=== PATIENT | male | born 1930 | race Caucasian/White ===

== ENCOUNTER 2017-05-07 14:09 | Inpatient (IN) | payer OTHER ==
--- NOTE | 2017-05-07 14:35 | EDPHY ---
H & P Stated Complaint: pnuemonia on xray this morning Time Seen by Provider: 05/07/17 14:32 HPI/ROS: CHIEF COMPLAINT: Weakness, cough HISTORY OF PRESENT ILLNESS: The patient is referred to the emergency department for evaluation of weakness, cough and hypoxemia. The patient reports he developed a cough approximately 5 days ago. The patient was seen at [facility] imaging center earlier today had a chest x-ray which demonstrated bilateral pneumonia. The patient denies any recent travel outside the [place] or antibiotic use. The patient does have a history of hypertension. He is also on Lasix. The patient denies significant weight gain. The patient denies any complaints of headache, neck pain, numbness or weakness. REVIEW OF SYSTEMS: A comprehensive 10 point review of systems is otherwise negative aside from elements mentioned in the history of present illness. Source: Patient Exam Limitations: No limitations - Personal History Current Tetanus/Diphtheria Vaccine: No Current Tetanus Diphtheria and Acellular Pertussis (TDAP): No - Medical/Surgical History Hx Asthma: No Hx Chronic Respiratory Disease: No Hx Diabetes: No Hx Cardiac Disease: Yes Hx Renal Disease: No Hx Cirrhosis: No Hx Alcoholism: No Hx HIV/AIDS: No Hx Splenectomy or Spleen Trauma: No Other PMH: CABG, colon CA, gout, cataract sx, CHF - Social History Smoking Status: Never smoked - Physical Exam Exam: General Appearance: Thin cachectic male Eyes: Pupils equal and round no pallor or injection ENT, Mouth: Mucous membranes moist Respiratory: Rhonchi bilateral lung bases Cardiovascular: Regular rate and rhythm, 2/6 systolic ejection murmur Gastrointestinal: Abdomen is soft and nontender, no masses, bowel sounds normal Neurological: 5/5 strength all 4 extremities, cranial nerves grossly intact Skin: Warm and dry, no rashes Musculoskeletal: Neck is supple nontender Extremities: symmetrical, full range of motion Constitutional: Initial Vital Signs Temperature (C) 36.8 C 05/07/17 14:16 Heart Rate 92 05/07/17 14:16 Respiratory Rate 20 05/07/17 14:16 Blood Pressure 101/49 L 05/07/17 14:16 O2 Sat (%) 93 05/07/17 14:16 O2 Delivery Mode Room Air O2 (L/minute) 2 Allergies/Adverse Reactions: bee stings Allergy (Uncoded 05/07/17 14:15) Home Medications: Medication Instructions Recorded Allopurinol [Allopurinol 100 MG 200 mg PO DAILY 05/07/17 (*)] Aspirin EC [Aspirin EC 81 mg (*)] 81 mg PO DAILY 05/07/17 Furosemide [Lasix 20 MG (*)] 20 mg PO DAILY 05/07/17 Losartan Potassium [Cozaar 50 mg 50 mg PO DAILY 05/07/17 (*)] Nebivolol HCl [Bystolic] 10 mg PO DAILY 05/07/17 Medical Decision Making - Diagnostics EKG Interpretation: EKG: Complete interpretation has been separately recorded in the [facility] archive. Summary impression: Atrial fibrillation, rate 50, bifascicular block Imaging Results: Imaging Impressions Chest X-Ray 05/07/17 11:34 Impression: Bilateral lower lobe pneumonia. ED Course/Re-evaluation: The patient appears strain dehydrated. He has a history of heart failure presents to the ED with a bilateral lower lobe pneumonia. The patient will require admission to the hospital. Blood cultures x2 obtained. The patient is started on IV Levaquin. Differential Diagnosis: Differential diagnosis considered includes pneumonia, influenza, bronchitis, heart failure - Data Points Laboratory Results: Laboratory Results 05/07/17 14:45 05/07/17 14:45 05/07/17 05/07/17 05/07/17 14:45 14:45 14:45 WBC 6.73 10^3/uL 10^3/uL (3.80-9.50) RBC 4.74 10^6/uL 10^6/uL (4.40-6.38) Hgb 15.4 g/dL g/dL (13.7-17.5) Hct 46.1 % % (40.0-51.0) MCV 97.3 fL fL (81.5-99.8) MCH 32.5 pg pg (27.9-34.1) MCHC 33.4 g/dL g/dL (32.4-36.7) RDW 14.7 % % (11.5-15.2) Plt Count 68 10^3/uL L 10^3/uL (150-400) MPV 12.3 fL H fL (8.7-11.7) Neut % (Auto) 58.1 % % (39.3-74.2) Lymph % (Auto) 30.9 % % (15.0-45.0) [place] % (Auto) 7.6 % % (4.5-13.0) Eos % (Auto) 2.5 % % (0.6-7.6) Baso % (Auto) 0.6 % % (0.3-1.7) Nucleat RBC Rel Count 0.0 % % (0.0-0.2) Absolute Neuts (auto) 3.91 10^3/uL 10^3/uL (1.70-6.50) Absolute Lymphs (auto) 2.08 10^3/uL 10^3/uL (1.00-3.00) Absolute Monos (auto) 0.51 10^3/uL 10^3/uL (0.30-0.80) Absolute Eos (auto) 0.17 10^3/uL 10^3/uL (0.03-0.40) Absolute Basos (auto) 0.04 10^3/uL 10^3/uL (0.02-0.10) Absolute Nucleated RBC 0.00 10^3/uL 10^3/uL (0-0.01) Immature Gran % 0.3 % % (0.0-1.1) Immature Gran # 0.02 10^3/uL 10^3/uL (0.00-0.10) Sodium 140 mEq/L mEq/L (135-145) Potassium 4.3 mEq/L mEq/L (3.5-5.2) Chloride 103 mEq/L mEq/L (97-110) Carbon Dioxide 19 mEq/l L mEq/l (22-31) Anion Gap 18 mEq/L H mEq/L (8-16) BUN 53 mg/dL H mg/dL (7-23) Creatinine 1.5 mg/dL H mg/dL (0.7-1.3) Estimated GFR 44 Glucose 83 mg/dL mg/dL (70-100) Calcium 9.4 mg/dL mg/dL (8.5-10.4) NT-Pro-B Natriuret Pep 18459 pg/mL H pg/mL (0-450) Departure - Departure Disposition: [facility] Inpatient Acute Clinical Impression: Pneumonia Condition: Fair
[2017-05-07 14:58] LABS: PLATELET COUNT 68 10^3/uL (150-400)
[2017-05-07] MEDS ORDERED: levOFLOXACIN 500 MG/DEXTROSE 100 ML IV ONE (15:10)
--- NOTE | 2017-05-07 15:21 | CPEKG ---
Heart Rate: 58 RR Interval: 1034 QRSD Interval: 136 QT Interval: 532 QTC Interval: 523 QRS [place]: 77 T Wave [place]: -79 EKG Severity - ABNORMAL ECG - EKG Impression: ATRIAL FIBRILLATION EKG Impression: VENTRICULAR PREMATURE COMPLEX EKG Impression: RBBB AND LPFB EKG Impression: ANTERIOR INFARCT, OLD Electronically Signed By: Morales Parra 07-May-2017 15:56:35
[2017-05-07] MEDS ORDERED: ACETAMINOPHEN 325 MG TAB PO PRN (15:30)
[2017-05-07] MEDS ORDERED: ONDANSETRON 4 MG/2 ML VIAL IVP PRN (15:30)
[2017-05-07] MEDS ORDERED: ONDANSETRON DISINTEGRATING 4 MG TAB PO PRN (15:30)
[2017-05-07] MEDS ORDERED: NS 1,000 ML IV ONE (15:32)
--- NOTE | 2017-05-07 16:11 | GHP ---
[f rep st] HISTORY AND PHYSICAL DATE OF ADMISSION: 05/07/2017 CHIEF COMPLAINT: Shortness of breath. HISTORY OF PRESENT ILLNESS: 86-year-old man sent to the emergency department for a respiratory infection. He is accompanied by his . He has had about 5 days of symptoms including some shortness of breath with exertion, cough, some phlegm production. He has not had any fevers. He occasionally coughs when he eats. He has never had any resistant bacteria. No recent exposure to a sauna or hot tub. He has no known history of atrial fibrillation. PAST MEDICAL/SURGICAL HISTORY: 1. Coronary artery disease, status post CABG. Systolic CHF with an EF of 36%. 2. Gout. 3. Colon cancer. 4. Cataract surgery. MEDICATIONS: Please see medication reconciliation. ALLERGIES: Bee stings. SOCIAL HISTORY: He is accompanied by his . He drinks 1 glass of wine with dinner. Does not smoke. FAMILY HISTORY: Reviewed and noncontributory. REVIEW OF SYSTEMS: 10-point review of systems is conducted and is negative except per HPI. PHYSICAL EXAM: VITAL SIGNS: Blood pressure 101/49, heart rate 92, respiration rate 20, saturating 93% on room air, temperature 36.8. GENERAL: The patient is a pleasant man who is resting comfortably. No acute distress. HEENT: Shows him to be normocephalic, atraumatic. He has a macular rash on his neck. CARDIOVASCULAR: Shows him to be irregularly irregular. He has distant S1 and S2. There are no murmurs, rubs, or gallops. PULMONARY: Bilateral basilar crackles. ABDOMEN: Soft, nontender, nondistended. SKIN: Rash on the neck. : No Johns. NEUROLOGIC: Shows him to be alert and oriented x3. He is moving all extremities. PSYCHIATRIC: Normal mood and affect. LABORATORY DATA: Creatinine is 1.5, BUN is 53, bicarb is 19. Platelets are 68. DATA: 1. Discussed with Dr. Parra in the emergency department. Will admit to PCU. 2. I personally viewed and interpreted his chest x-ray. This shows bilateral lower lobe infiltrates. 3. I personally viewed and interpreted his EKG. This shows atrial fibrillation. 4. I reviewed his chart including notes from Dr. Plummer as well as Dr. Parra ' ER note. IMPRESSION AND PLAN: 1. Pneumonia: Possibly aspiration. No history of resistant organisms. Will treat for community-acquired pneumonia with Rocephin and doxycycline (he has a prolonged QT). Send a respiratory pathogen panel. He has a reactive airways component. Will add prednisone. 2. Reactive airways disease: Prednisone. 3. Atrial fibrillation: This is new. His EKG is somewhat difficult to interpret. May be due to acute pneumonia. I will trend troponins, place him in the PCU, monitor him on telemetry, and recheck an EKG in the morning. 4. Ischemic congestive heart failure: He is in systolic congestive heart failure with an ejection fraction of 36%. He is followed by Dr. Plummer. I think that he is clinically dry. I will give him a 1 L bolus. Follow this closely. He will need his congestive heart failure medications restarted when appropriate. 5. Bradycardia: Will hold his Bystolic for now. He has some mild pauses seen on telemetry. This will likely need to be restarted soon. 6. Acute kidney injury: I believe this is prerenal. Will hold nephrotoxins including angiotensin receptor ariana, give him a fluid bolus, recheck tomorrow. 7. Gout: Allopurinol. Would need to reduce the allopurinol if his creatinine does not improve. 8. Coronary artery disease: Continue his aspirin. I do not see a statin on his list. Holding other cardiac medications for now as above. 9. Code status: Discussed with him and his . He would like to be full code. 10. Thrombocytopenia: This is new. Unsure the true chronicity, though his last platelets were checked in 2014 and were 117. Will recheck tomorrow. Hold venous thromboembolism prophylaxis. 11. Venous thromboembolism prophylaxis: Sequential compression devices. /[id number]/MODL MTDD
[2017-05-07] MEDS: predniSONE 20 MG TAB PO SCH (16:25)
[2017-05-07] MEDS: DOXYCYCLINE INJ 100 MG in NS 250 ML IV SCH (20:35)
[2017-05-08 05:28] LABS: PLATELET COUNT 62 10^3/uL (150-400)
[2017-05-08] MEDS: ALLOPURINOL 100 MG TAB PO SCH (08:12)
[2017-05-08] MEDS: predniSONE 20 MG TAB PO SCH (08:12)
[2017-05-08] MEDS: ASPIRIN EC 81 MG TAB PO SCH (08:12)
--- NOTE | 2017-05-08 08:44 | CPEKG ---
Heart Rate: 59 RR Interval: 1017 QRSD Interval: 128 QT Interval: 504 QTC Interval: 500 QRS [place]: 163 T Wave [place]: -61 EKG Severity - ABNORMAL ECG - EKG Impression: ATRIAL FIBRILLATION EKG Impression: NONSPECIFIC INTRAVENTRICULAR CONDUCTION DELAY EKG Impression: LOW VOLTAGE QRS IN FRONTAL LEADS EKG Impression: EXTENSIVE ANTERIOR INFARCT, AGE INDETERMINATE Electronically Signed By: New Romero 08-May-2017 11:00:15
[2017-05-08] MEDS ORDERED: cefTRIAXone 1 GM in STERILE WATER INJ 10 ML IV SCH (09:00)
[2017-05-08] MEDS ORDERED: ENOXAPARIN 40 MG/0.4 ML SYR SC SCH (09:00)
--- NOTE | 2017-05-08 09:09 | PDMN ---
Medical Necessity Medical necessity: M282 cPNA- A-4 days: pna poss aspiration,SOB, cough, bilat infiltrates on CXR, EKG shows afib, ischemic congestive heart failure: sCHF with EF 36% hx of CABG, bradycardia, acute kidney injury, anticipate > 2 midnights ongoing monitoring, eval and tx needed.
[2017-05-08] MEDS: DOXYCYCLINE INJ 100 MG in NS 250 ML IV SCH ×2 (09:15→20:50)
--- NOTE | 2017-05-08 12:17 | ASMTCMCOM ---
CM Note CM Note Notes: 05/08/2017 Case Management Note Discussed pt during rounds this morning. Met w/pt and Cassandra [phone] (h) [phone] (cell) to discuss PT recommendation for home care. and pt in agreement. Confirmed address and home bound status. Primary MD is Dr. Williams Peters in [facility]. Faxed referral to [facility] at family request after discussing agency options. Case Management d/c poc: [facility] RN and PT Case Management to follow. Date Signed: 05/08/2017 12:16 PM Electronically Signed By:Nica Eli RN
--- NOTE | 2017-05-08 16:42 | HOSPPROG ---
Hospitalist Progress Note Assessment/Plan: # acute hypoxic respiratory failure- chest x-ray(personally reviewed and interpreted) shows bilateral infiltrates Oxygen saturations 93% on 3 L - continue empiric IV antibiotics for community-acquired pneumonia - continue inhaled beta agonist - continue supplemental oxygen # acute kidney injury secondary to hypovolemia-creatinine 1.5->1.3 status post IV fluid resuscitation - continue to follow # coronary artery disease-no active chest pain complaints -continue aspirin - continue telemetry monitoring # hypotension-presumed secondary to acute infection and concurrent hypovolemia -continue IV fluid support -hold home antihypertensive # -prophylaxis Lovenox # diet as tolerated # disposition greater than 2 midnights as the patient is 86 presenting with acute pneumonia requiring IV antibiotics and therapy eval for safe disposition I have discussed the case with the RN-we will continue current course Subjective: Very tired Objective: Vital Signs Temp Pulse Resp BP Pulse Ox 36.4 C 57 L 16 85/58 L 97 05/08/17 07:46 05/08/17 12:44 05/08/17 11:13 05/08/17 12:44 05/08/17 11:13 Microbiology 05/07/17 23:18 Respiratory Panel (PCR) - Final Nasal, Sinus - [place] Viral Transport No Organism Detected Laboratory Results 05/08/17 05:17 05/08/17 05:17 05/07/17 05/08/17 05/09/17 05:59 05:59 05:59 Intake Total 1410 Balance 1410 - Physical Exam Constitutional: chronically ill appearing Eyes: anicteric sclera Ears, Nose, Mouth, Throat: moist mucous membranes Cardiovascular: regular rate and rhythym Respiratory: no respiratory distress, rhonchi Gastrointestinal: normoactive bowel sounds Genitourinary: no bladder fullness Skin: warm Musculoskeletal: No asymmetric calves Neurologic: No AAOx3 Psychiatric: poor memory Lymph, Heme, Immunologic: no cervical LAD ICD10 Worksheet Patient Problems: Problems Problem Status Onset Pneumonia Acute
[2017-05-08] MEDS ORDERED: NS 1,000 ML IV ONE (16:44)
[2017-05-09] MEDS: ALLOPURINOL 100 MG TAB PO SCH (08:53)
[2017-05-09] MEDS: predniSONE 20 MG TAB PO SCH (08:54)
[2017-05-09] MEDS: DOXYCYCLINE INJ 100 MG in NS 250 ML IV SCH ×2 (08:55→20:21)
[2017-05-09] MEDS: ASPIRIN EC 81 MG TAB PO SCH ×2 (08:56→16:10)
[2017-05-09] MEDS ORDERED: NS 1,000 ML IV ONE (10:42)
--- NOTE | 2017-05-09 15:21 | HOSPPROG ---
Hospitalist Progress Note Assessment/Plan: # acute hypoxic respiratory failure- chest x-ray (personally reviewed and interpreted) shows bilateral infiltrates Oxygen saturations 90% on RA at rest - continue empiric IV antibiotics for community-acquired pneumonia - continue inhaled beta agonist - continue supplemental oxygen # acute kidney injury secondary to hypovolemia-creatinine 1.5->1.2 status post IV fluid resuscitation - continue to follow # atrial fibrillation with new junctional rhythm-patient is presenting AFib appears to be new per history as well as the junctional rhythm this afternoon - consult Cardiology -continue to hold home meds - ordering TTE # acute hyperkalemia-suspect likely related to hemolysis will recheck lab # coronary artery disease-no active chest pain complaints- troponin indeterminate of 0.10 range at presentation EKG ( personally reviewed and interpreted) with nonspecific ST-T flattening- atrial fibrillation is new - continue aspirin - continue telemetry monitoring - ordering transthoracic echocardiogram # chronic ischemic cardiomyopathy-last ejection fraction reported in the 30% range currently appears compensated- if anything volume down at presentation - status post IV fluid resuscitation - continue to follow # hypotension-presumed secondary to acute infection and concurrent hypovolemia Status post 2 L normal saline fluid resuscitation -continue to hold home antihypertensive # prophylaxis Lovenox # diet as tolerated # disposition greater than 2 midnights as the patient is 86 presenting with acute pneumonia requiring IV antibiotics and therapy eval for safe disposition I have discussed the case with Cardiology-they will consult and review patient' s rhythm strips as well as transthoracic echocardiogram Subjective: Wants to go home Objective: Vital Signs Temp Pulse Resp BP Pulse Ox 36.6 C 66 21 H 89/53 L 88 L 05/09/17 07:24 05/09/17 14:33 05/09/17 14:33 05/09/17 12:36 05/09/17 14:33 Laboratory Results 05/09/17 03:48 05/09/17 13:25 05/08/17 05/09/17 05/10/17 05:59 05:59 05:59 Intake Total 1410 2100 740 Output Total 240 Balance 1410 2100 500 - Physical Exam Constitutional: chronically ill appearing Eyes: anicteric sclera Ears, Nose, Mouth, Throat: dry mucous membranes Cardiovascular: regular rate and rhythym, systolic murmur, bradycardia Respiratory: no respiratory distress, rhonchi Gastrointestinal: normoactive bowel sounds Genitourinary: no bladder fullness Skin: warm Musculoskeletal: No asymmetric calves Neurologic: No AAOx3 Psychiatric: poor memory Lymph, Heme, Immunologic: no cervical LAD ICD10 Worksheet Patient Problems: Problems Problem Status Onset Pneumonia Acute
--- NOTE | 2017-05-09 16:22 | ECHO ---
[email or web address] [address] Main: [phone] Fax: [email or web address] Echocardiogram Name: WEN DODGE MR#: [id number] Study Date: 05/09/2017 Study Time: 01:52 PM Date of : 1930 Age: 86 year(s) Height: ( ) Weight: ( ) BSA: Gender: Male Examination: Echo Indication: hypotension h/o HF Image Quality: Contrast: Requested by: Angely Hanks BP: 83 mmHg/63 mmHg Heart Rate: Rhythm: Indication: hypotension h/o HF Procedure Staff Grain Farmworker: Rosamaria Dye [facility] Reading Physician: Tam Colindres MD Requesting Provider: Conclusions: The patient is in atrial fibrillation at the time of the study. The left ventricle appears to be normal in size. The ejection fraction is moderately reduced at 34%. Segmental wall motion abnormalities include akinesis of the inferior and inferolateral lewis. The interventricular septum is "D" shaped in systole and I asked Abelardo consistent with right ventricular pressure and volume overload. There is moderate biatrial enlargement. The right ventricle appears to be mildly dilated with mild to moderately reduced RV systolic function. Mild mitral annular calcification is noted. There is moderate mitral and tricuspid regurgitation. The estimated RVSP is moderately elevated at 52 mmHg. IVC plethora as noted. There are no comparison studies. There is mention made in the electronic medical record that the patient has had a known ischemic cardiomyopathy with previous ejection fraction of 36%. Measurements: Chambers Valvular Assessment AV/MV Valvular Assessment TV/PV Normal Normal Normal Name Value Range Name Value Range Name Value Range Ao Della (MM): 3.8 cm (2.2 cm-3.7 AV Vmax: 0.85 m/s (1 m/s-1.7 TR Vmax: 3.05 mm/s ( - ) cm) m/s) TR PGmax: 37 mmHg ( - ) IVSd (2D): 1.2 cm (0.6 cm-1.1 AV maxP mmHg ( - ) syst. PAP: 52 mmHg ( - ) cm) LVOT Vmax: 0.73 m/s (0.7 m/s-1.1 PV Vmax: 0.37 m/s (0.6 m/s-0.9 LVDd (2D): 5.7 cm (4.2 cm-5.9 m/s) m/s) cm) MV E Vmax: 0.74 m/s ( - ) PV PGmax: 1 mmHg ( - ) LVDs (2D): 4.3 cm (2.1 cm-4 MV A Vmax: 0.27 m/s ( - ) cm) MV E/A: 2.74 ( - ) LVPWd (2D): 1.0 cm (0.6 cm-1 cm) LVEF (BP): 34 % (>=55 %) RVDd(2D): 4.0 cm (1.9 cm-3.8 cmmm) Continued Measurements: Patient: WEN DODGE Study Date: 05/09/2017 Page 1 of 2 01:52 PM Chambers Valvular Assessment AV/MV Valvular Assessment TV/PV Name Value Name Value Name Value LADs: 4.4 cm MV DecTime: 85 m/s CVP (est.): 15 mmHg LADs Lon.0 cm MV E/E' Lateral: 10.30 LA Area: 23.3 cm2 LA Volume: 81 ml TAPSE: 0.7 cm RA Area: 29.0 cm2 Additional Vessels Name Value Ao Ascendin.0 cm Findings: Left Ventricle: Left ventricle upper limits of normal. Mild concentric LV hypertrophy. Moderately reduced systolic LV function. EF is 34 %. Unable to assess diastolic dysfunction. Basal to mid inferior, inferoseptal and inferolateral thinning and akinesis consistent with old PR. Remaining lewis are mildly hypokinetic. Right Ventricle: Mildly to moderately dilated right ventricle. Mildly to moderately reduced right ventricular function. Flattened interventricular septum consistent with right ventricular pressure and/or volume overload free wall. Left Atrium: The left atrium is moderately dilated. Right Atrium: The right atrium is moderately to severely dilated. Mitral Valve: There is mild thickening of the mitral valve leaflets. Mild mitral annular calcification. Moderate mitral valve regurgitation is present. No mitral stenosis is present. Aortic Valve: The aortic valve is tri-leaflet and functions normally. Trivial aortic valve regurgitation. No aortic valve stenosis is present. Tricuspid Valve: The tricuspid valve is normal in appearance and function. Moderate tricuspid regurgitation is present. Right ventricular systolic pressure measures 52mmHg. The pulmonary artery pressure is moderately increased. Pulmonic Valve: Pulmonary valve not well visualized. Trivial pulmonic valve regurgitation. Aorta: Normal size aortic root measuring 3.8 cm. Normal size ascending aorta measuring 3.0 cm. IVC: The IVC is dilated. There is less than 50% respiratory excursion. Pericardium: Trivial pericardial effusion. There is a pleural effusion present. (No Signature Object) Patient: WEN DODGE Study Date: 05/09/2017 Page 2 of 2 01:52 PM [id number]
--- NOTE | 2017-05-09 17:12 | GCON ---
[f rep st] CONSULTATION CARDIOLOGY CONSULTATION DATE OF CONSULTATION: 05/09/2017 REFERRING PHYSICIAN: Angely Hanks MD PRIMARY HOME LIGHTING ADVISER: Dr. Carlos Plummer. REASON FOR CONSULTATION: Atrial fibrillation with slow ventricular responses. HISTORY: The patient is an 86-year-old male typically followed by Dr. Plummer in our clinic. His outpatient records have been thoroughly reviewed. He has a history of coronary artery disease status post CABG in 2000, with an ischemic cardiomyopathy, EF last measured around 30%, who presented with respiratory illness. He had noted a cough and shortness of breath approximately 5 days before presentation. He was found to have bilateral infiltrates on his chest x- ray, suggestive of a community-acquired pneumonia. He is now admitted for further treatment due to ongoing hypoxia. He was also found to be in atrial fibrillation of unknown duration. Prior to getting ill, he had not been noting any chest pain, dyspnea, PND, orthopnea, palpitations, presyncope, syncope. His activities are limited to his ADLs. He has not noted any worsening edema. PAST MEDICAL HISTORY: 1. CAD status post CABG. 2. Ischemic cardiomyopathy with systolic CHF, EF of 30%. 3. Gout. 4. History of colon cancer. 5. History of prostate cancer. 6. History of cataract surgery. 7. History of colon resection. 8. History of hernia repair. 9. History of prostatectomy. OUTPATIENT MEDICATIONS: Include allopurinol, aspirin, Bystolic, furosemide, losartan. FAMILY HISTORY: Significant for lung cancer. SOCIAL HISTORY: Patient is and lives with his spouse. He reports occasional alcohol intake. He is a nonsmoker. ALLERGIES: Bee stings. REVIEW OF SYSTEMS: As per HPI. A complete 10-point review of systems is obtained and is negative except for what is dictated. PHYSICAL EXAMINATION: VITAL SIGNS: BP of 89/53, heart rate of 50, respirations of 20, O2 saturation 98% on 2 L/min. GENERAL: He is a pleasant elderly male, in no apparent distress. EYES: Without scleral icterus. HEART: Distant heart sounds with irregular rate and rhythm. LUNGS: Very diminished with rhonchi and rales auscultated. ABDOMEN: Soft, nontender, with normoactive bowel sounds. SKIN : Venous static changes but without overt edema detected. : No Johns. Psych: Normal mood and affect for given situation. NEURO: No focal deficits detected. LABORATORY DATA: CBC with WBC 4.67, hemoglobin 14, hematocrit 42, platelet count of 66. BMP with sodium 140, potassium 4.8 chloride 108, CO2 of 19, BUN 50 , creatinine 1.2, glucose of 113. Troponin 0.142, then 0.129. NT proBNP is at 19 ,500. Telemetry personally reviewed, shows atrial fibrillation with a slow ventricular response. A 12-lead ECG, personally interpreted, shows AFib with extensive Q-waves across the precordium. IMAGING: Chest x-ray reviewed shows bilateral lower lobe pneumonias. I reviewed patient's care with Dr. Hanks. IMPRESSION AND PLAN: The patient is an 86-year-old male who presents with pneumonia. 1. Pneumonia. This is being managed by Hospital Medicine Service, and he is on antibiotics currently. He is also on supplemental oxygen for his hypoxic respiratory failure. 2. Hypoxic respiratory failure. O2 saturations are adequate at this time. 3. Atrial fibrillation. Patient is in atrial fibrillation in the setting of an infection. He has not had any noted episodes of atrial fibrillation per chart review. His CHADS-VASc is elevated with age, congestive heart failure, and vascular disease which puts his CHADS-VASc at 4, which confers a 4% per year risk of thromboembolic event. Patient should likely be on anticoagulation. However, this will be reviewed with the patient's upon her arrival. 4. Bradycardia. His beta ariana has been held. He has had pauses but none greater than 2.5 seconds which does not meet criteria for pacer, given he is asymptomatic. He will likely be placed on outpatient holter monitoring. 5. CAD. He has minimal troponin elevation in the setting of known systolic congestive heart failure. He has no symptoms suggestive of angina. He will be continued on medical management. /[id number]/MODL MTDD
[2017-05-10 07:43] VITALS: RESP 16
[2017-05-10] MEDS: DOXYCYCLINE INJ 100 MG in NS 250 ML IV SCH (07:50)
[2017-05-10] MEDS: predniSONE 20 MG TAB PO SCH (10:58)
[2017-05-10] MEDS: ALLOPURINOL 100 MG TAB PO SCH (10:59)
[2017-05-10] MEDS ORDERED: APIXABAN 5 MG TAB PO SCH (11:00)
[2017-05-10 11:28] VITALS: BP 103/58; TEMP 97.9
[2017-05-10] MEDS: ASPIRIN EC 81 MG TAB PO SCH (11:40)
--- NOTE | 2017-05-10 12:32 | PDCARPN ---
Cardiology Progress Note Chief Complaint: AF Assessment/Plan: Assessment: 86M PMH CAD/CABG 1999, AR 1999, htn, dyslipidemia, p/w cough/fatigue. Found to have bilateral pna. #. bilateral pna: per IM #. AHRF: will likely need O2 on discharge #. SCHF: echo showing stable EF 34% with AK of inf and inf/lat lewis; D shaped IVS c/w RVP and volume O/L, mod MR/TR and RVSP 52 Lasix on hold as patient has no peripheral edema will follow closely in outpatient setting to determine when to resume Lasix #. AF: new problem unknown chronicity [id number] of 4 / reviewed with patient and and they are agreeable to start Eliquis R/B/A of AC versus no AC reviewed #. bradycardia: asymptomatic plan for holter monitor in outpatient setting #. CAD: no symptoms suggestive of angina not on statin for unclear reasons will plan outpatient follow up Plan: Start on Eliquis Outpatient plans to include getting a 48-hr holter. 05/10/17 12:26 Subjective: No dyspnea currently. Reviewed/Discussed With: hospitalist (Dr. Hanks) Objective: Vital Signs (8 Hrs) Temp Pulse Resp BP Pulse Ox 05/10/17 11:19 97.9 F 50 L 16 103/58 L 98 05/10/17 07:42 97.6 F 55 L 16 101/68 96 Intake/Output (24 Hrs) 05/09/17 05/10/17 05/11/17 05:59 05:59 05:59 Intake Total 2100 1529 Output Total 440 Balance 2100 1089 Intake: Oral (ml) 800 1140 IV Intake (ml) 1300 39 IV Infused (ml) 350 Doxycycline Inj 100 mg In 250 Ns 250 ml @ 260 mls/hr IV Q12HRS OLIVE Rx#: [id number] Ns 1,000 ml @ 3000 mls/hr 100 IV ONCE ONE Rx#: [id number] Output: Urine (ml) 440 Toilet 440 Other: Weight 77.5 kg Intake Quantity Yes Sufficient Number of Voids Toilet 1 2 Number of Stools Toilet 1 1 Result Diagrams: 05/10/17 03:46 05/10/17 03:46 Cardiac Labs: Cardiac Lab Results (72 Hrs) 05/07/17 05/07/17 23:05 19:51 Troponin I 0.129 H 0.142 H Echocardiogram: reviewed - Physical Exam Constitutional: no apparent distress Eyes: anicteric sclera Cardiovascular: irregularly irregular Respiratory: reduced air movement, bronchial breath sounds Neurologic: AAOx3 Psychiatric: cooperative, interactive ICD10 Worksheet Patient Problems: Problems Problem Status Onset Pneumonia Acute
[2017-05-10 13:26] VITALS: PULSE 90
--- NOTE | 2017-05-10 13:57 | ASMTCMCOM ---
CM Note CM Note Notes: Patient reviewed in rounds. Improving and want to go home. To start Eliquis today. Per therapy ok to dc to home. Would benefit form C PT. CM to follow. Date Signed: 05/10/2017 01:54 PM Electronically Signed By:Lenka Root RN
--- NOTE | 2017-05-10 14:36 | PDIAF ---
- Diagnosis Diagnosis: pneumonia and atrila fibrillation Code Status: Full Code - Medication Management Discharge Medications: Medications to Continue on Transfer Allopurinol [Allopurinol 100 MG (*)] 200 mg PO DAILY 05/07/17 [Last Taken ] Apixaban [Eliquis] 5 mg PO BID #60 tab 05/10/17 [Last Taken Unknown] levOFLOXACIN [Levofloxacin] 750 mg PO DAILY #3 tablet 05/10/17 [Last Taken Unknown] Discharge Medications: Refer to the Discharge Home Medication list for PRN reason. - Orders Services needed: Home Care, Registered Nurse, Physical Therapy, Occupational Therapy Home Care Face to Face: I certify that this patient was under my care and that I had the required [id number] encounter meeting the encounter requirements on the discharge day. My findings support the fact that the patient is homebound as defined in Home Care Face to Face Continued: [facility] Chapter 7 Medicare Benefits Manual 30.1.1 , The condition of the patient is such that there exists a normal inability to leave home and consequently, leaving home would require a considerable and taxing effort. Isolation Type: None Diet Recommendation: no restrictions on diet Diet Texture: Regular Texture Diet - Follow Up Care Current Providers and Referrals: Robert Allred MD [Medical Doctor] - 05/22/17 1:00 pm NONE *PRIMARY CARE P,. [Unknown] - As per Instructions
--- NOTE | 2017-05-10 14:38 | PDHOMEO2F ---
Home Oxygen Face to Face Home Orders: I certify that a physician or a nurse practitioner or physician's registered nurse first assistant has had a [id number]-[id number] encounter with this patient on the date of this order due to the diagnosis listed, which relates to the primary reason the patient requires home oxygen. Alternative treatments have been tried, or considered, and deemed ineffective. It is anticipated that supplemental oxygen will result in improvement with treatment. Home oxygen qualifying diagnosis: pneumonia SpO2 on room air (%): 86% Frequency of home oxygen needed: continuous Home oxygen liters per minute: 2 Home oxygen delivery device: nasal cannula Concentrator: Yes E-tanks for mobility and back up: Yes If ordering portable O2, is the patient mobile in the home?: Yes I certify that, based on these findings, the home oxygen is medically necessary for this patient for the following length of time. Length of time home oxygen needed: 3 months
[2017-05-10 14:46] VITALS: O2SAT 87
--- NOTE | 2017-05-10 15:23 | ASMTLACE ---
LACE Length of stay for Answers: 3 days current admission Acuity / Level of Answers: Yes Care: Did the patient have an inpatient admission? Comorbidities - select Answers: Congestive heart failure all that apply Coronary Artery Disease Other Notes: HTN, Colon cancer # of Emergency department Answers: 1-2 visits in the last 6 months Score: 12 Date Signed: 05/10/2017 03:22 PM Electronically Signed By:Lenka Root RN
--- NOTE | 2017-05-10 17:22 | GDS ---
[f rep st] DISCHARGE SUMMARY DISCHARGE DIAGNOSES: Include: 1. Community-acquired pneumonia. 2. Atrial fibrillation. Started on anticoagulation. 3. Occasional junctional rhythm. 4. Coronary artery disease. 5. Ischemic cardiomyopathy, ejection fraction 36%. 6. Gout. 7. Acute hypoxic respiratory failure secondary to pneumonia. HISTORY OF PRESENT ILLNESS: An 86-year-old male who presents to the hospital with complaint of short ness of breath. For details of the patient's initial presentation, please see the History and Physic al dated 05/07/2014. CONSULTATIVE SERVICES: Include Cardiology. PROCEDURES: None. HOSPITAL COURSE: By issue: 1. Acute hypoxic respiratory failure secondary to pneumonia: Patient had infiltrates on chest x-ray . Blood cultures and respiratory viral PCR were negative. He was empirically started on IV antibiot ics. Patient had improvement in his pulmonary symptoms during his hospital stay and is being dischar ged to complete a 7-day course of antibiotics with 3 additional days of oral levofloxacin and supplem ental oxygen. He is to follow in his outpatient primary care office for evaluation of his oxygen sat 's and discontinuation of oxygen when no longer needed. 2. Atrial fibrillation: New diagnosis. Patient was found to be in AFib upon hospital admission. H ad several episodes of junctional bradycardia but, in general, had atrial fibrillation with controlle d heart rate. Patient was seen by Cardiology, and it was clear that he had no interest in a pacemake r. Was started on Eliquis anticoagulation and will follow in the outpatient setting with Cardiology. 3. Hypotension: Patient's blood pressures were initially low at presentation secondary to his acute infection with pneumonia. Patient's antihypertensives were held during his hospital stay. Systolic blood pressures were in the 100s and 110s on the day of disposition. We are continuing to hold his blood pressure medications until seen in the outpatient setting by Cardiology where they can safely b e initiated. 4. Coronary artery disease: Longstanding diagnosis for this patient. He did not complain of chest pain during this hospital stay. His aspirin is being discontinued in the place of Eliquis at this [facility]. He will be evaluated by Dr. Allred at cardiology, where ongoing discussions related to his atrial fibrillation, anticoagulation, antiplatelets, and blood pressure medications can be continued. Diana scales is being discharged to home with home health with his . He has been cleared by PT, and he wi ll follow with Cardiology in the next 1-2 weeks. MEDICATIONS AT THE TIME OF TRANSFER: Please reference the Medication Reconciliation printed on 05/10. PENDING STUDIES: At the time of this dictation include blood cultures drawn 05/07/2017, which are pr eliminary no growth to date. TIME SPENT: I spent greater than 30 minutes in the planning and coordination of this discharge. /[id number]/MODL
== END 2017-05-10 16:33 | disposition home or self-care (01) | DRG 193 ==
LOC: EDSTATUS 14:09 → F2W 17:20
PROVIDERS: ADMIT Student in an Organized Health Care Education/Training Program; ATTEND Hospitalist
DX: J18.9 Pneumonia, unspecified organism (principal); I48.91 Unspecified atrial fibrillation; J96.01 Acute respiratory failure with hypoxia; R00.1 Bradycardia, unspecified; I95.9 Hypotension, unspecified; I50.20 Unspecified systolic (congestive) heart failure; I25.10 Atherosclerotic heart disease of native coronary artery without angina pectoris; I10 Essential (primary) hypertension; M10.9 Gout, unspecified; Z95.1 Presence of aortocoronary bypass graft; Z85.038 Personal history of other malignant neoplasm of large intestine; Z85.46 Personal history of malignant neoplasm of prostate
CPT/HCPCS: 71046-PO; 97116-GP; 97162-GP; 97166-GO; 97530-GO; 97535-GO; G8987-GO-CJ; G8988-GO-CI; J0696; J1956; J7512